=== PATIENT | female | born 1950 | race Caucasian/White ===

== ENCOUNTER 2022-02-16 09:57 | Emergency (ER) | payer MEDICARE ==
[~2022-02-16] VITALS: Wt 65.3 kg
[2022-02-16] MEDS ORDERED: CETIRIZINE HYDR10 MG PO (10:14)
[2022-02-16] MEDS ORDERED: ATORVASTATIN CA10 M1 PO (10:15)
[2022-02-16] MEDS ORDERED: FLUTICASONE PROP 50 (10:15)
== END 2022-02-16 12:47 | disposition home or self-care (01) ==
LOC: ED 09:57
DX: H92.03 Otalgia, bilateral (principal)

== ENCOUNTER 2022-05-27 07:46 | Emergency (ER) | payer MEDICARE ==
[~2022-05-27 07:46] MED LIST: ATORVASTATIN CA10 M1 PO; CETIRIZINE HYDR10 MG PO; FLUTICASONE PROP 50
[2022-05-27] MEDS ORDERED: CLARITIN10 MG PO (08:49)
== END 2022-05-27 09:18 | disposition home or self-care (01) ==
LOC: ED 07:46
DX: L50.9 Urticaria, unspecified (principal); Z88.1 Allergy status to other antibiotic agents; Z88.8 Allergy status to other drugs, medicaments and biological substances; Z79.899 Other long term (current) drug therapy